=== PATIENT | male | born 1945 | race Caucasian/White ===

== ENCOUNTER 2022-01-11 10:10 | Inpatient (IN) | payer OTHER, BC ==
[~2022-01-11] VITALS: Ht 172.7 cm; Wt 67.6 kg
--- NOTE | 2022-01-11 10:12 | NUR ---
BIBA BLS TO ER BED 5
[2022-01-11 10:16] VITALS: BP 147/79
--- NOTE | 2022-01-11 10:35 | NUR ---
COVID AND FLU SWAB COLLECTED AND SENT TO LAB
--- NOTE | 2022-01-11 10:58 | NUR ---
IV ESTABLISHED TO RIGHT AC WITH 20G. BLOOD DRAWN
[2022-01-11] MEDS ORDERED: ACETAMINOPHEN 325 MG TAB PO ONE (11:20)
[2022-01-11] MEDS ORDERED: NACL 0.9% 1,000 ML IV ONE (11:20)
--- NOTE | 2022-01-11 11:36 | NUR ---
XR AT BEDSIDE
--- NOTE | 2022-01-11 11:36 | NUR ---
BLOOD AND URINE SENT TO LAB
[2022-01-11 11:41] LABS: APPEARANCE,URINE CLEAR (CLEAR); BILIRUBIN,URINE NEGATIVE (NEGATIVE); BLOOD, URINE 1+ (NEGATIVE); COLOR,URINE DARK YELLOW (YELLOW); LEUKOCYTE ESTERASE ,URINE TRACE (NEGATIVE); NITRITE, URINE NEGATIVE (NEGATIVE); UGLUCOSE 3+ (NEGATIVE)
[2022-01-11 11:45] LABS: MEAN CORPUSCULAR VOLUME 88.3 fL (80-94)
[2022-01-11 11:48] LABS: BASOPHILS % (AUTO) 0.1 % (0.0-2.0); HEMATOCRIT 42.6 % (36-52); HEMOGLOBIN 14.6 g/dL (12.0-18.0); LYMPHOCYTES # (AUTO) 1.1 K/uL (2.0-11.5); LYMPHOCYTES % (AUTO) 8.9 % (20.5-51.1); MEAN CORPUSCULAR HEMOGLOBIN 30 pg (27-31); MEAN CORPUSCULAR HGB CONC 34 g/dL (33-37); MONOCYTES # (AUTO) 1.3 K/uL (0.8-1.0); MONOCYTES % (AUTO) 9.8 % (1.7-9.3); NEUTROPHILS # (AUTO) 10.5 K/uL (1.8-7.7); NEUTROPHILS % (AUTO) 81.2 % (42.2-75.2); PLATELET COUNT (AUTO) 207 K/uL (140-450); RED BLOOD CELL COUNT(AUTO) 4.82 MIL/uL (4.20-6.10); RED CELL DISTRIBUTION WIDTH 13.5 % (11.6-13.7); WHITE BLOOD COUNT (AUTO) 12.9 K/uL (4.8-10.8)
[2022-01-11 11:56] LABS: OTHER CASTS, URINE None Seen /LPF (None Seen)
[2022-01-11 11:56] LABS: ALBUMIN 2.9 g/dL (3.4-5.0); ASPARTATE AMINOTRANSFERASE 24 U/L (15-37); CARBON DIOXIDE 26.2 mmol/L (21-32); CHLORIDE 97 mmol/L (98-107); CREATININE 1.2 mg/dL (0.6-1.3); GLUCOSE 234 mg/dL (74-106); POTASSIUM 3.2 mmol/L (3.5-5.1); SODIUM SERUM 136 mmol/L (136-145); UREA NITROGEN, BLOOD 18 mg/dL (7-18)
[2022-01-11] MEDS ORDERED: POTASSIUM CHLORIDE 10 MEQ TABER PO ONE (12:10)
[2022-01-11] MEDS ORDERED: MAGNESIUM OXIDE 400 MG TAB PO ONE (12:10)
[2022-01-11] MEDS ORDERED: cefTRIAXone 1,000 MG VIAL ONE (12:20)
[2022-01-11] MEDS ORDERED: POTASSIUM CHLORIDE 10 MEQ TABER PO PRN (13:15)
[2022-01-11] MEDS ORDERED: ACETAMINOPHEN 325 MG TAB PO PRN (13:15)
[2022-01-11] MEDS ORDERED: MAG SULF 2000 MG/WATER PREMIX 50 ML IV PRN (13:15)
[2022-01-11] MEDS ORDERED: ONDANSETRON 4 MG/2 ML VIAL IVP PRN (13:15)
[2022-01-11] MEDS ORDERED: DOCUSATE SODIUM 100 MG GELCAP PO PRN (13:15)
[2022-01-11] MEDS ORDERED: ZOLPIDEM 10 MG TAB PO PRN (13:15)
[2022-01-11] MEDS ORDERED: LORazepam 2 MG/ML VIAL IVP PRN (13:15)
[2022-01-11] MEDS ORDERED: MORPHINE SULFATE 2 MG/ML SYR IVP PRN (13:15)
[2022-01-11] MEDS ORDERED: AZITHROMYCIN 500 MG in DEXTROSE 5% 250 ML IV SCH (13:30)
[2022-01-11] MEDS ORDERED: AZITHROMYCIN 500 MG INJ VIAL IV ONE (13:52)
[2022-01-11] MEDS ORDERED: METO100T14 PO (16:51)
[2022-01-11] MEDS ORDERED: METF-346 PO (16:51)
[2022-01-11] MEDS ORDERED: OMEP20EC11 PO (16:51)
[2022-01-11] MEDS ORDERED: AMLO10TA89 PO (16:51)
[2022-01-11] MEDS ORDERED: HYDR1TAB73 PO (16:51)
[2022-01-11] MEDS ORDERED: SEMA0.25 SQ (16:51)
[2022-01-11] MEDS ORDERED: ASPI-1822 PO (16:51)
--- NOTE | 2022-01-11 20:40 | NUR ---
PT TAKEN TO BED 2
[2022-01-12 05:50] LABS: BASOPHILS % (AUTO) 0.1 % (0.0-2.0); EOSINOPHILS % (AUTO) 0.3 % (0.0-4.0); HEMATOCRIT 42.7 % (36-52); HEMOGLOBIN 14.8 g/dL (12.0-18.0); LYMPHOCYTES # (AUTO) 1.2 K/uL (2.0-11.5); LYMPHOCYTES % (AUTO) 11.5 % (20.5-51.1); MEAN CORPUSCULAR HEMOGLOBIN 31 pg (27-31); MEAN CORPUSCULAR HGB CONC 35 g/dL (33-37); MEAN CORPUSCULAR VOLUME 87.7 fL (80-94); MONOCYTES # (AUTO) 1.1 K/uL (0.8-1.0); MONOCYTES % (AUTO) 10.5 % (1.7-9.3); NEUTROPHILS # (AUTO) 8.4 K/uL (1.8-7.7); NEUTROPHILS % (AUTO) 77.6 % (42.2-75.2); PLATELET COUNT (AUTO) 197 K/uL (140-450); RED BLOOD CELL COUNT(AUTO) 4.86 MIL/uL (4.20-6.10); RED CELL DISTRIBUTION WIDTH 13.6 % (11.6-13.7); WHITE BLOOD COUNT (AUTO) 10.8 K/uL (4.8-10.8)
[2022-01-12 06:26] LABS: ANION GAP 14.9 (8-16); CARBON DIOXIDE 26.3 mmol/L (21-32); CHLORIDE 99 mmol/L (98-107); CREATININE 1.1 mg/dL (0.6-1.3); GLUCOSE 232 mg/dL (74-106); POTASSIUM 3.2 mmol/L (3.5-5.1); SODIUM SERUM 137 mmol/L (136-145); UREA NITROGEN, BLOOD 17 mg/dL (7-18)
--- NOTE | 2022-01-12 06:33 | NUR ---
PATIENT HAS BEEN SCREENED AND CATEGORIZED MODERATE NUTRITION RISK. PATIENT WILL BE SEEN WITHIN 3-5 DAYS OF ADMISSION. 01/11/22-01/16/[address]
--- NOTE | 2022-01-12 07:10 | NUR ---
PT RECEIVED, CARE ASSUMED. PT A/OX4. INTRODUCED MYSELF. PT DENIES ANY PAIN OR DISTRESS. NOTED VITAL SIGNS, WILL CONTINUE TO MONITOR
[2022-01-12] MEDS ORDERED: cefTRIAXone 1,000 MG VIAL ONE (12:50)
[2022-01-12] MEDS ORDERED: AZITHROMYCIN 500 MG in DEXTROSE 5% 250 ML IV SCH (14:00)
[2022-01-12] MEDS ORDERED: AZITHROMYCIN 500 MG INJ VIAL IV ONE (14:29)
[2022-01-12 21:00] VITALS: BP 120/77
--- NOTE | 2022-01-12 21:00 | NUR ---
RECEIVED PT AAOX4 FROM ER/ WHEELCHAIR , WALKS TO BED , IV SITE INTACT AND PATENT , RA - O2 SAT WNL , DENIES ANY PAIN AT THIS TIME . ON TELE MONITOR - SR , ADMISSION ASSESSMENT WILL BE DONE , PUT PT ON FALL PREVENTION PROTOCOL . URINAL / CALL LIGHT WITHIN REACH . PLAN OF CARE DISCUSS AND VERBALIZES UNDERSTANDING . WILL CONT. TO MONITOR .
--- NOTE | 2022-01-12 22:54 | NUR ---
PT TRANSFERRED TO TELE ROOM 105 B. ENDORSED TO SORAYA GUERRERO. PT STABLE.
[2022-01-13] VITALS: BP 112/63
--- NOTE | 2022-01-13 | NUR ---
ROUNDS , NO S/SX OF ACUTE DISTRESS NOTED , WILL CONT. TO MONITOR .
[2022-01-13 04:00] VITALS: BP 100/60
--- NOTE | 2022-01-13 04:00 | NUR ---
ROUNDS , NO COMPLAIN MADE .
--- NOTE | 2022-01-13 06:00 | NUR ---
RESTING ON BED , CALL LIGHT WITHIN REACH .
[2022-01-13 06:46] LABS: BASOPHILS % (AUTO) 0.1 % (0.0-2.0); EOSINOPHILS # (AUTO) 0.2 K/uL (0-0.4); EOSINOPHILS % (AUTO) 2.5 % (0.0-4.0); HEMATOCRIT 43.2 % (36-52); HEMOGLOBIN 14.6 g/dL (12.0-18.0); LYMPHOCYTES # (AUTO) 1.6 K/uL (2.0-11.5); LYMPHOCYTES % (AUTO) 18.3 % (20.5-51.1); MEAN CORPUSCULAR HEMOGLOBIN 30 pg (27-31); MEAN CORPUSCULAR HGB CONC 34 g/dL (33-37); MEAN CORPUSCULAR VOLUME 89.1 fL (80-94); MONOCYTES % (AUTO) 11.6 % (1.7-9.3); NEUTROPHILS # (AUTO) 5.9 K/uL (1.8-7.7); NEUTROPHILS % (AUTO) 67.5 % (42.2-75.2); PLATELET COUNT (AUTO) 189 K/uL (140-450); RED BLOOD CELL COUNT(AUTO) 4.85 MIL/uL (4.20-6.10); RED CELL DISTRIBUTION WIDTH 13.6 % (11.6-13.7); WHITE BLOOD COUNT (AUTO) 8.8 K/uL (4.8-10.8)
--- NOTE | 2022-01-13 07:28 | NUR ---
ENDORSED FOR CONT. OF CARE , DENIES DIARRHEA .
--- NOTE | 2022-01-13 07:30 | NUR ---
RECEIVED REPORT FROM NIGHTSHIFT NURSE, DANIEL. PT A/O X4. NO SOB OR RESPIRATORY DISTRESS. ON RA. DENIES PAIN. DENIES DIARRHEA. TELE, SR. NO IV NOTED. NEEDS ALL MET AT THIS TIME. ALL SAFETY MEASURES IN PLACE.
[2022-01-13 07:51] LABS: CHLORIDE 100 mmol/L (98-107); GLUCOSE 230 mg/dL (74-106); SODIUM SERUM 137 mmol/L (136-145); UREA NITROGEN, BLOOD 18 mg/dL (7-18)
[2022-01-13 08:00] VITALS: BP 132/68
[2022-01-13] MEDS ORDERED: DEXTROSE 50% 50 ML SYR IVP PRN (08:20)
[2022-01-13] MEDS ORDERED: INSULIN LISPRO SLIDING SCALE 100 UNITS/ML VIAL SUBQ PRN (08:20)
[2022-01-13] MEDS ORDERED: LEVO-481 PO (11:06)
[2022-01-13] MEDS ORDERED: BLOOD GLUCOSE MONITORING 1 DEV DEV FS SCH (11:30)
[2022-01-13 12:16] VITALS: BP 132/68
--- NOTE | 2022-01-13 13:00 | NUR ---
PT ANXIOUS TO GO HOME. AT BEDSIDE ALSO ANXIOUS TO GO HOME. DISCHARGE INSTRUCTIONS GIVEN. PT VERBALIZED UNDERSTANDING. NO IV SITE TO DISCONTINUE. PT WHEELED OUT VIA WHEELCHAIR BY RESIDENTIAL AIDE.
== END 2022-01-13 12:45 | disposition home or self-care (01) | DRG 871 ==
LOC: MED 10:10 → MTU 13:05
PROVIDERS: ADMIT Family Medicine; ATTEND Family Medicine
DX: A41.9 Sepsis, unspecified organism (principal); J18.9 Pneumonia, unspecified organism; N39.0 Urinary tract infection, site not specified; Z20.822 Contact with and (suspected) exposure to COVID-19; E87.6 Hypokalemia; I10 Essential (primary) hypertension; E11.9 Type 2 diabetes mellitus without complications; Z79.4 Long term (current) use of insulin
CPT/HCPCS: 36415; 71045; 80048; 80053; 81001; 82948; 83605; 83735; 83880; 84484; 85025; 87040; 87081; 87086; 93005; 96361; 96365; 99285; J0456; J0696; J1815; J7030; J7060; Q0092